=== PATIENT | male | born 1955 | race Caucasian/White ===

== ENCOUNTER 2022-02-12 11:00 | Outpatient (REF) | payer MEDICARE, SELFPAY ==
[2022-02-12 16:08] LABS: Anion Gap 8.1 mmol/L (3-11); BUN 14 mg/dL (7-18); CO2 28.9 mmol/L (21.0-32.0); Calcium 9.1 mg/dL (8.5-10.1); Calculated LDL 152 mg/dL (<100); Chloride 103 mmol/L (98-107); Cholesterol 243 mg/dL (<200); Estimated GFR 83.52 (mL/min/1.73m2); Glucose 113 mg/dL (74-106); HDL Cholesterol 76 mg/dL (40-60); Potassium 4.4 mmol/L (3.5-5.1); Sodium 140 mmol/L (136-145); TSH 2.41 uIU/mL (0.36-3.74); Triglyceride 75 mg/dL (<150)
== END 2022-02-12 11:01 | disposition home or self-care (01) ==
LOC: NCHCN 11:00
PROVIDERS: Visit Provider Family Medicine
DX: Z00.00 Encounter for general adult medical examination without abnormal findings (principal); R73.01 Impaired fasting glucose; E03.9 Hypothyroidism, unspecified
CPT/HCPCS: 80048; 80061; 84443

== ENCOUNTER 2023-02-11 14:17 | Outpatient (REF) | payer MEDICARE, SELFPAY ==
[2023-02-11 17:03] LABS: HCT 46.5 % (40.0-50.0); HGB 15.6 g/dL (13.5-17.5); MCH 32.6 pg (27.0-33.0); MCHC 33.5 % (32.0-36.0); MCV 97 fL (80-95); MPV 10.7 fL (8.0-11.0); Platelet Count 225 10^3/uL (130-400); RBC 4.78 10^6/uL (4.36-5.78); RDW 12.2 % (11.8-14.1); RDW-SD 44.3 fL; WBC 4.77 10^3/uL (4.4-10.8)
[2023-02-11 17:25] LABS: ALT 35 U/L (16-63); AST 18 U/L (15-37); Albumin 3.8 g/dL (3.4-5.0); Alkaline Phosphatase 63 U/L (46-116); BUN 15 mg/dL (7-18); Bilirubin, Total 0.6 mg/dL (0.2-1.0); CREATININE 0.9 mg/dL (0.70-1.30); Calcium 9.2 mg/dL (8.5-10.1); Calculated LDL 142 mg/dL (<100); Chloride 106 mmol/L (98-107); Cholesterol 224 mg/dL (<200); Estimated GFR 94.19 (mL/min/1.73m2); Glucose 106 mg/dL (74-106); HDL Cholesterol 65 mg/dL (40-60); Potassium 4.8 mmol/L (3.5-5.1); Sodium 142 mmol/L (136-145); Total Protein 6.9 g/dL (6.4-8.2); Triglyceride 87 mg/dL (<150)
[2023-02-11 17:38] LABS: Hemoglobin A1C 5.7 % (<5.7)
== END 2023-02-11 14:18 | disposition home or self-care (01) ==
LOC: NCHCN 14:17
PROVIDERS: PCP Family Medicine; Visit Provider Family Medicine
DX: E06.3 Autoimmune thyroiditis (principal); R73.01 Impaired fasting glucose
CPT/HCPCS: 80053; 80061; 85027; 83036; 84443

== ENCOUNTER 2024-03-25 14:58 | Outpatient (REF) | payer MEDICARE, SELFPAY ==
[2024-03-25 16:45] LABS: Calculated LDL 142 mg/dL (<100); Cholesterol 224 mg/dL (<200); HDL Cholesterol 73 mg/dL (40-60); TSH (W/Ref FT4) 1.47 uIU/mL (0.36-3.74); Triglyceride 48 mg/dL (<150)
[2024-03-25 17:06] LABS: Hemoglobin A1C 5.6 % (<5.7)
== END 2024-03-25 14:59 | disposition home or self-care (01) ==
LOC: NCHCN 14:58
PROVIDERS: PCP Family Medicine; Visit Provider Family Medicine
DX: E03.9 Hypothyroidism, unspecified (principal); R73.03 Prediabetes
CPT/HCPCS: 80061; 83036; 84443

== ENCOUNTER 2024-04-11 15:31 | Emergency (ER) | payer MEDICARE, SELFPAY ==
[2024-04-11 15:34] VITALS: BP 188/88; PULSE 70; RESP 20; TEMP 36.8; O2SAT 98
--- NOTE | 2024-04-11 16:00 | DI.CT_ITS ---
Exam(s) CT HEAD CERVICAL SPINE WO EXAM: CT HEAD CERVICAL SPINE WO CLINICAL HISTORY: head injury (skiing). TECHNIQUE: Imaging Protocol: Axial computed tomography images with coronal and sagittal reformatted images were created and reviewed COMPARISON: No exams were available for comparison FINDINGS: CT Head: Ventricles and Extra axial spaces: Normal in size and morphology for the patient's age. Hemorrhage: None. 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 No evidence of an acute territorial infarct. No acute mass effect is present. Midline shift: None. Brainstem/Cerebellum: Normal. Calvarium: Normal. Visualized Paranasal sinuses/Mastoids: Clear. Soft Tissues: Unremarkable. CT Cervical Spine: Bones: No acute fracture or subluxation. Age-appropriate degenerative changes are seen in the cervica l spine. There is straightening of the normal cervical lordosis which may be due to muscle spasm or patient positioning. Soft Tissues: Unremarkable. Lung Apices: Clear. IMPRESSION: 1. No acute intracranial process. 2. No acute fracture or subluxation in the cervical spine. RADIATION DOSE DELIVERED: Total DLP DATA REPOSITORY: All CT scans at this facility are submitted to the National Radiology Data Registry (NRDR) Dose Index Registry (DIR) with the [employer] ([employer]). RADIATION OPTIMIZATION: All CT scans at this facility use at least one of these dose optimization te chniques: automated exposure control; mA and/or kV adjustment per patient size (includes targeted exa ms where dose is matched to clinical indication); or iterative reconstruction.
--- NOTE | 2024-04-11 16:00 | DI.RAD_ITS ---
Exam(s) XR SHOULDER RT COMPLETE 2+V EXAM: XR SHOULDER RT COMPLETE 2+V CLINICAL HISTORY: A shoulder pain status post fall (skiing). TECHNIQUE: 2D digital imaging was performed of the right shoulder. Five images were obtained. AP, Grashey, Y-view and axillary views were obtained. COMPARISON: No exams were available for comparison FINDINGS: BONES: No acute fracture is present. No bony destructive lesion is seen. JOINTS: No dislocation present. There are mild degenerative changes seen at the acromioclavicular karolina nt. SOFT TISSUE: Normal. IMPRESSION: No acute fracture or dislocation. DATA REPOSITORY: RADIATION DOSE DELIVERED:
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
[2024-04-11] MEDS: Acetaminophen 325 MG TAB 650 MG PO (16:28)
[2024-04-11 17:22] VITALS: BP 145/81; PULSE 65; RESP 16; O2SAT 98
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
[2024-04-11] MEDS: Lidocaine 5% Patch 1 PATCH TP (17:55)
== END 2024-04-11 18:02 | disposition home or self-care (01) ==
PROVIDERS: Emergency Provider Nurse Practitioner Family; PCP Family Medicine
DX: S06.0X0A Concussion without loss of consciousness, initial encounter (principal); M25.511 Pain in right shoulder; S16.1XXA Strain of muscle, fascia and tendon at neck level, initial encounter; Y93.23 Activity, snow (alpine) (downhill) skiing, snowboarding, sledding, tobogganing and snow tubing; S00.81XA Abrasion of other part of head, initial encounter
CPT/HCPCS: 99284; 70450; 72125; 73030; 99285

== ENCOUNTER 2024-04-24 13:03 | Outpatient (CLI) | payer MEDICARE, SELFPAY ==
--- NOTE | 2024-04-24 | DI.MRI_ITS ---
Exam(s) MR UPPER JOINT RT WO EXAM: MR UPPER JOINT RT WO CLINICAL HISTORY: INJURY OF SHOULDER S49.91XA RT SHOULDER AND UPPER ARM INJURY TECHNIQUE: Multiplanar multisequence MRI of the shoulder was performed. COMPARISON: CR,XR XR SHOULDER RT COMPLETE 2+V from 04/11/2024 FINDINGS: MARROW:There is no evidence of fracture, Hill-Sachs deformity, nor ominous osseous lesions. Two degen erative subarticular cysts evident in the anterior articular surface region the humeral head. There are no degenerative subarticular cysts in the osseous glenoid nor in the greater tuberosity. GLENOHUMERAL JOINT: No joint effusion nor obvious loose intra-articular bodies. No chondral defects. No osteophytes. No degenerative subarticular cysts. ROTATOR CUFF MECHANISM: AC JOINT/ACROMIUM: There moderate degenerative changes in the AC joint. There are degenerative subar ticular cysts and some bone edema both sides of this joint. However, there are no prominent downgoin g osteophytes at this level.. There is no evidence of os acromiale. Supraspinatus: There is mild increased signal within the most anterior aspect of the supraspinatus te ndon at its insertional aspect upon the most anterior aspect of the greater tuberosity. There does n ot appear to be an obvious full-thickness tear at this level. No retraction musculotendinous junctio n. No tendon thickening. No muscle atrophy. There is no fluid in the subacromial bursa. Infraspinatus: Intact. No evidence of tear nor muscle atrophy. Teres Minor: Intact. No evidence of tear nor muscle atrophy. Subscapularis/anterior cuff: There is mild tendinitis signal in the subscapularis tendon just anterio r to the greater tuberosity. There are degenerative subarticular cysts in the greater tuberosity als o evident. There is no full-thickness tear. No atrophy. BICEPS TENDON: Exhibits normal position within the intertubercular groove. No evidence of tear. No tenosynovitis. LABRUM: There is some increased signal within the superior labrum posterior to the biceps insertion s ite. May represent SLAP-type tear. This extends towards the upper aspect of the posterior labrum. However, the remainder of the posterior labrum appears unremarkable. Mild linear signal also noted i n the anterior labrum. The anteroinferior labrum is intact and there is no abnormal intraosseous sig nal at this level to suggest Bankart-type injury IMPRESSION: 1. Some tendinitis findings are noted at the anterior insertional aspect of the supraspinatus tendon as well as in the insertional aspect of the anterior cuff-subscapularis. There are no full-thickness tears nor tendon retraction nor muscle atrophy. 2. There are moderate degenerative changes in the AC joint including degenerative subarticular cysts on both sides the joint as well as bone edema in both distal subarticular clavicle and acromium.. Th ere are no prominent downgoing osteophytes at this level nor undersurface osteophytic ridge at the le jahaira of the acromion. 3. There is subtle signal abnormality in the superior labrum and anterior labrum which may represent subtle tears of the labrum at these locations. Correlation clinical findings is recommended. There is no evidence of biceps tendon tear. DATA REPOSITORY:
== END 2024-04-24 13:23 ==
LOC: DI 13:04
PROVIDERS: PCP Family Medicine; Visit Provider Family Medicine
DX: M19.011 Primary osteoarthritis, right shoulder (principal)
CPT/HCPCS: 73221

== ENCOUNTER → 2024-05-06 08:52 | Outpatient (BNVA) | payer MEDICARE, SELFPAY | PROVIDERS: PCP Family Medicine; Referring Provider Family Medicine; Visit Provider Student in an Organized Health Care Education/Training Program | DX: M19.011 Primary osteoarthritis, right shoulder (principal); S43.431D Superior glenoid labrum lesion of right shoulder, subsequent encounter; X58.XXXD Exposure to other specified factors, subsequent encounter | CPT/HCPCS: 99213 ==

== ENCOUNTER → 2024-07-08 08:45 | Outpatient (BNVA) | payer MEDICARE, SELFPAY | PROVIDERS: PCP Family Medicine; Referring Provider Family Medicine; Visit Provider Student in an Organized Health Care Education/Training Program | DX: M19.011 Primary osteoarthritis, right shoulder (principal); S43.431D Superior glenoid labrum lesion of right shoulder, subsequent encounter; X58.XXXD Exposure to other specified factors, subsequent encounter | CPT/HCPCS: 99213 ==

== ENCOUNTER 2025-03-16 10:30 | Outpatient (REF) | payer MEDICARE, SELFPAY ==
[2025-03-16 16:15] LABS: HCT 46.2 % (40.0-50.0); HGB 15.0 g/dL (13.5-17.5); MCH 31.4 pg (27.0-33.0); MCHC 32.5 % (32.0-36.0); MCV 97 fL (80-95); MPV 10.1 fL (8.0-11.0); Platelet Count 234 10^3/uL (130-400); RBC 4.77 10^6/uL (4.36-5.78); RDW 11.9 % (11.8-14.1); RDW-SD 42.8 fL; WBC 5.14 10^3/uL (4.4-10.8)
[2025-03-16 16:27] LABS: TSH 1.79 uIU/mL (0.55-4.78)
[2025-03-16 16:34] LABS: Anion Gap 4.7 mmol/L (3-11); BUN 13 mg/dL (9-23); CO2 30.3 mmol/L (20.0-31.0); Calcium 9.4 mg/dL (8.3-10.6); Chloride 106 mmol/L (98-107); Cholesterol 188 mg/dL (<200); Glucose 105 mg/dL (74-106); HDL Cholesterol 74 mg/dL (>40); Potassium 4.9 mmol/L (3.5-5.1); Sodium 141 mmol/L (136-145)
== END 2025-03-16 10:31 | disposition home or self-care (01) ==
LOC: NCHCN 10:30
PROVIDERS: PCP Family Medicine; Visit Provider Family Medicine
DX: E03.9 Hypothyroidism, unspecified (principal); R03.0 Elevated blood-pressure reading, without diagnosis of hypertension
CPT/HCPCS: 80048; 80061; 85027; 84443